=== PATIENT | female | born 1995 | race African-American/Black ===

== ENCOUNTER 2021-05-08 17:45 | Emergency (ER) | payer OTHER ==
[2021-05-08 18:00] VITALS: BP 126/87; PULSE 68; TEMP 97; BMI 30.4
[2021-05-08] MEDS ORDERED: HALOPERIDOL LACTATE 5 MG/ML IV ONE (19:29)
[2021-05-08] MEDS ORDERED: SODIUM CHLORIDE 0.9% 500 ML INFUS.BAG IV ONE (19:29)
[2021-05-08] MEDS ORDERED: METOCLOPRAMIDE HCL INJECTION 10 MG/2 ML VIAL IVPUSH ONE (19:46)
[2021-05-08] MEDS ORDERED: ACETAMINOPHEN 1000 MG/100 ML VIAL IVPB ONE (19:46)
[2021-05-08] MEDS ORDERED: FAMOTIDINE 20 MG/50 ML IVPB 20 MG/50 ML MG IVPB ONE ×2 (19:47→20:11)
[2021-05-08] MEDS ORDERED: MAG HYDROX/AL HYDROX/SIMETH 30 ML UNIT-DOSE CUP PO ONE (19:47)
[2021-05-08] MEDS ORDERED: METOCLOPRAMIDE HCL INJECTION 10 MG/2 ML VIAL ONE (20:10)
[2021-05-08] MEDS ORDERED: ACETAMINOPHEN INJECTION 100 ML IVPB ONE (20:10)
[2021-05-08] MEDS ORDERED: HALOPERIDOL LACTATE 5 MG/ML ONE (20:10)
[2021-05-08] MEDS ORDERED: MAG HYDROX/AL HYDROX/SIMETH 30 ML UNIT-DOSE CUP ONE (20:11)
[2021-05-08 21:20] LABS: BASO % 0.9 % (0-2.0); HEMATOCRIT 29.8 % (32.4-45.2); HEMOGLOBIN 9.1 GM/dL (10.7-15.3); LYMPH % 16.6 % (8-40); MCHC 30.6 g/dl (32.0-36.0); MEAN CELL VOLUME 56.2 fl (80-96); MONO % 8.2 % (3.8-10.2); NEUT % 74.3 % (42.8-82.8); RBC 5.32 M/mm3 (3.60-5.2); WHITE BLOOD COUNT 8.5 K/mm3 (4.0-10.0)
[2021-05-08 21:24] LABS: BLOOD UREA NITROGEN 4.9 mg/dL (7-18); CALCIUM 9.3 mg/dL (8.5-10.1)
[2021-05-08 21:25] LABS: MCH 17.2 pg (25.7-33.7)
[2021-05-08 21:27] LABS: CREATININE 0.6 mg/dL (0.55-1.3)
[2021-05-08 21:29] LABS: BILIRUBIN,TOTAL 0.7 mg/dL (0.2-1); TOT PROT 8.6 g/dl (6.4-8.2)
[2021-05-08 22:44] LABS: ANISOCYTOSIS 3+; MACROCYTOSIS 1+; PLATELET ESTIMATE NORMAL
[2021-05-08 22:45] LABS: MEAN PLT VOLUME 9.2 fl (7.5-11.1); PLATELET COUNT 412 10^3/uL (134-434); TARGET CELLS 1+
[2021-05-08 22:48] LABS: OVALOCYTE 1+
== END 2021-05-08 21:52 | disposition home or self-care (01) ==
LOC: JER 17:45
PROC: 3E033GC Introduction of Other Therapeutic Substance into Peripheral Vein, Percutaneous Approach (ICD-10-PCS; principal; 2021-05-08)
DX: R11.2 Nausea with vomiting, unspecified (principal)
CPT/HCPCS: 36415; 80053; 85025; 96365; 96375; 99284-25; J0131

== ENCOUNTER 2023-06-02 05:28 | Emergency (ER) | payer OTHER ==
[2023-06-02 05:48] VITALS: BP 108/68; PULSE 68; RESP 18; TEMP 97.8; BMI 33.4
[2023-06-02] MEDS ORDERED: ONDANSETRON 4 MG/2 ML VIAL IVPUSH ONE (05:58)
[2023-06-02] MEDS ORDERED: ACETAMINOPHEN 1000 MG/100 ML BAG IVPB ONE (05:58)
[2023-06-02] MEDS ORDERED: MAG HYDROX/AL HYDROX/SIMETH 30 ML UNIT-DOSE CUP PO ONE (05:58)
[2023-06-02] MEDS ORDERED: SODIUM CHLORIDE 1,000 ML IV STA (05:58)
[2023-06-02] MEDS ORDERED: FAMOTIDINE 20 MG/50 ML IVPB 20 MG/50 ML MG IVPB ONE ×2 (06:05→06:30)
[2023-06-02] MEDS ORDERED: MAG HYDROX/AL HYDROX/SIMETH 30 ML UNIT-DOSE CUP ONE (06:30)
[2023-06-02] MEDS ORDERED: ONDANSETRON 4 MG/2 ML VIAL ONE (06:30)
[2023-06-02] MEDS ORDERED: ACETAMINOPHEN INJECTION 100 ML IVPB ONE (06:30)
[2023-06-02 06:51] LABS: BASO % 1.1 % (0-2.0); HEMATOCRIT 33.1 % (32.4-45.2); HEMOGLOBIN 9.7 GM/dL (10.7-15.3); LYMPH % 17.3 % (8-40); MCHC 29.3 g/dl (32.0-36.0); MEAN PLT VOLUME 8.4 fl (7.5-11.1); MONO % 5.4 % (3.8-10.2); NEUT % 76.2 % (42.8-82.8); PLATELET COUNT 621 10^3/uL (134-434); RBC 5.71 M/mm3 (3.60-5.2); RDW 21.6 % (11.6-15.6); WHITE BLOOD COUNT 12.2 K/mm3 (4.0-10.0)
[2023-06-02 07:03] LABS: CALCIUM 9.7 mg/dL (8.5-10.1)
[2023-06-02 07:04] LABS: ALBUMIN 4.3 g/dl (3.4-5.0); BLOOD UREA NITROGEN 5.4 mg/dL (7-18); MAGNESIUM 1.8 mg/dL (1.8-2.4)
[2023-06-02 07:06] LABS: CREATININE 0.7 mg/dL (0.55-1.3)
[2023-06-02 07:09] LABS: BILIRUBIN,TOTAL 0.6 mg/dL (0.2-1)
[2023-06-02] MEDS ORDERED: POTASSIUM CHLORIDE TABS 20 MEQ TABLET.ER (FP) PO ONE ×2 (07:11→07:35)
[2023-06-02] MEDS ORDERED: MAGNESIUM SULF 50% (8.12 MEQ/2 ML-1 GM VIAL) IVPB ONE (07:12)
[2023-06-02] MEDS ORDERED: KCL 10 MEQ IVPB 10 MEQ/100 ML INFUS.BAG IVPB SCH (07:15)
[2023-06-02] MEDS ORDERED: KCL 10 MEQ IVPB 10 MEQ/100 ML INFUS.BAG IVPB ONE (07:36)
[2023-06-02] MEDS ORDERED: HALOPERIDOL LACTATE 5 MG/ML IVPUSH ONE (07:38)
[2023-06-02] MEDS ORDERED: METOCLOPRAMIDE HCL 10 MG TABLET (FP) PO ONE (07:59)
[2023-06-02] MEDS ORDERED: METOCLOPRAMIDE HCL INJECTION 10 MG/2 ML VIAL IVPUSH ONE (08:00)
[2023-06-02] MEDS ORDERED: METOCLOPRAMIDE HCL INJECTION 10 MG/2 ML VIAL ONE (08:23)
[2023-06-02 08:49] LABS: ANISOCYTOSIS 3+; MACROCYTOSIS 0; OVALOCYTE 2+; TARGET CELLS 1+; TEAR DROP CELLS 1+
== END 2023-06-02 09:04 | disposition left against medical advice (07) ==
LOC: JER 05:28
PROC: 3E033GC Introduction of Other Therapeutic Substance into Peripheral Vein, Percutaneous Approach (ICD-10-PCS; principal; 2023-06-02)
PROC: 3E033NZ Introduction of Analgesics, Hypnotics, Sedatives into Peripheral Vein, Percutaneous Approach (ICD-10-PCS; 2023-06-02)
PROC: 3E033GC Introduction of Other Therapeutic Substance into Peripheral Vein, Percutaneous Approach (ICD-10-PCS; 2023-06-02)
PROC: 3E033GC Introduction of Other Therapeutic Substance into Peripheral Vein, Percutaneous Approach (ICD-10-PCS; 2023-06-02)
PROC: 3E033GC Introduction of Other Therapeutic Substance into Peripheral Vein, Percutaneous Approach (ICD-10-PCS; 2023-06-02)
PROC: 3E0337Z Introduction of Electrolytic and Water Balance Substance into Peripheral Vein, Percutaneous Approach (ICD-10-PCS; 2023-06-02)
DX: R10.9 Unspecified abdominal pain (principal); R11.2 Nausea with vomiting, unspecified; E87.6 Hypokalemia
CPT/HCPCS: 36415; 80053; 83735; 84703; 85025; 93005; 93010; 99284-25